=== PATIENT | male | born 1960 | race Caucasian/White ===

== ENCOUNTER → 2016-08-03 | Outpatient (CLI) | payer BC ==
[~2016-08-03] MED LIST: ATN25T PO; HYDR-2013 PO; IBUP-788 PO; IBUP-793 PO; IBUP200C PO; LORA10TA7 PO; LSNP20T PO; MELO-255 PO; MNTL10T PO; ONDAN4ODT PO; TAMS-8 PO; lisinopril
--- NOTE | 2016-08-03 17:26 | Diagnostic Imaging Report ---
Indication: Cervical radiculopathy. Surgery was performed in June 2016 Examination: Cervical spine 08/03/2016. Comparison: 08/05/2015. Findings: 4 views of the cervical spine. There has been interval postoperative change. There is anterior fusion noted at the C6-C7 level. Alignment of the spine is preserved. Vertebral body heights are maintained. There appears to be a likely interbody device at the postoperative level somewhat obscured by the thoracic inlet. Impression: Uncomplicated postoperative change. Dictated by: Dictated on workstation # [id number]
== END ==
LOC: RAD 13:11
PROVIDERS: ATTEND Neurological Surgery
DX: M54.12 Radiculopathy, cervical region (principal)
CPT/HCPCS: 72040

== ENCOUNTER → 2016-10-05 | Outpatient (CLI) | payer BC | LOC: RAD 13:35 | PROVIDERS: ATTEND Neurological Surgery | DX: M54.12 Radiculopathy, cervical region (principal); Z98.890 Other specified postprocedural states | CPT/HCPCS: 72040 ==